=== PATIENT | female | born 1940 | race Caucasian/White ===

== ENCOUNTER → 2019-11-28 | Outpatient (CLI) | payer OTHER | LOC: RAD 08:15 | DX: M48.061 Spinal stenosis, lumbar region without neurogenic claudication (principal); R29.890 Loss of height; M43.16 Spondylolisthesis, lumbar region ==

== ENCOUNTER → 2020-09-28 | Outpatient (CLI) | payer OTHER ==
[2020-09-28 09:04] LABS: INR 0.94; PROTIME 10.3 Seconds (10.5-12.1)
== END ==
LOC: LAB 08:01
PROVIDERS: ATTEND Specialist
DX: I48.91 Unspecified atrial fibrillation (principal); Z79.01 Long term (current) use of anticoagulants

== ENCOUNTER → 2020-10-05 | Outpatient (CLI) | payer OTHER ==
[2020-10-05 08:40] LABS: CREATININE 1.2 mg/dL (0.6-1.0)
--- NOTE | 2020-10-05 12:40 | NUR ---
PT DISCHARGED PER AT 1215. VERBALIZES UNDERSTANDING OF DC INST. AMBULATED TO BATHROOM WITHOUT DIFFICULTY. HAD SLIGHT NUMBNESS TO RT TOES THAT IS RESOLVING. VSS. HR 80. BP 140/75. SAT 97% ON RA. PAIN FREE. DRESSING TO LUMBAR BACK AREA CLEAN DRY INTACT.
== END | disposition home or self-care (01) ==
LOC: RAD 07:53
PROVIDERS: ATTEND Specialist
DX: M51.36 Other intervertebral disc degeneration, lumbar region (principal); M48.061 Spinal stenosis, lumbar region without neurogenic claudication; M43.16 Spondylolisthesis, lumbar region; M54.9 Dorsalgia, unspecified; M47.896 Other spondylosis, lumbar region